=== PATIENT | female | born 1970 | race African-American/Black ===

== ENCOUNTER 2025-03-05 18:41 | Emergency (ER) | payer MEDICAID, OTHER ==
[~2025-03-05] VITALS: Ht 157.5 cm; Wt 86.5 kg
[2025-03-05] MEDS ORDERED: FAMOTIDINE 20MG TABLET PO ONE (21:45)
[2025-03-05] MEDS ORDERED: KETOROLAC 15MG/ML VIAL IM ONE (21:45)
[2025-03-05 23:16] LABS: BASOPHILS % 1.4 % (0.0-2.0); EOSINOPHILS % 2.0 % (0.0-5.0); HEMATOCRIT. 37.0 % (36.0-48.0); HEMOGLOBIN. 11.9 g/dL (12.0-16.0); LYMPHOCYTES % 31.1 % (20.0-50.0); MEAN PLATELET VOLUME 10.7 fl (7.4-10.4); MONOCYTES % 8.7 % (2.0-8.0); NEUTROPHILS % 56.8 % (40.0-76.0); PLATELET 191 x1000/uL (130-400); RED BLOOD CELL COUNT 3.93 mill/uL (4.2-5.4); RED CELL DISTRIBUTION WIDTH 13.8 % (11.6-14.6)
[2025-03-05 23:26] LABS: INR 1.1
[2025-03-05 23:28] LABS: CREATININE 0.6 mg/dL (0.6-1.0); UREA NITROGEN BLOOD 6 mg/dL (9-23)
[2025-03-05 23:30] LABS: ASPARTATE AMINOTRANSFERASE 181 IU/L (<34); BILIRUBIN DIRECT 0.2 mg/dL (<=3.0); BILIRUBIN TOTAL 0.4 mg/dL (0.1-1.0); PROTEIN TOTAL 8.2 g/dL (6.0-8.3)
[2025-03-05 23:31] LABS: HCG SCREEN NEGATIVE
[2025-03-06] MEDS: FAMOTIDINE 20MG TABLET PO NR (00:08)
[2025-03-06] MEDS: KETOROLAC 30MG/ML VIAL IM NR (00:09)
[2025-03-06 01:41] LABS: CLARITY URINE CLOUDY (CLEAR); COLOR URINE DARK YELLOW (YELLOW); GLUCOSE URINE NEGATIVE (NEGATIVE); KETONES URINE TRACE (NEGATIVE); LEUKOCYTE ESTERASE URINE 1+ (NEGATIVE); NITRITE URINE POSITIVE (NEGATIVE); OCCULT BLOOD URINE NEGATIVE (NEGATIVE); PH URINE 6.0 (4.5-8.0); PROTEIN URINE TRACE (NEGATIVE); SPECIFIC GRAVITY URINE 1.023 (1.005-1.030); UROBILINOGEN URINE 1.0 E.U./dL (0.2-1.0)
[2025-03-06 01:53] LABS: BACTERIA URINE 3+; RBC URINE 0-2 /hpf (0-2); SQUAMOUS EPITHELIAL CELL URINE 2+ /lpf (RARE/1+); WBC URINE 15-25 /hpf (0-2)
[2025-03-06] MEDS: CEFTRIAXONE 1GM/50ML 50 ML IV ONE (03:37)
[2025-03-06 06:51] VITALS: BP 139/62; PULSE 91; RESP 15; TEMP 36.7; O2SAT 98
[2025-03-06] MEDS ORDERED: ACET-2708 MT (07:00)
[2025-03-06] MEDS ORDERED: SULF1TAB48 MT (07:00)
[2025-03-06] MEDS ORDERED: IBUP-2030 MT (07:00)
== END 2025-03-06 07:05 | disposition home or self-care (01) ==
LOC: ER 18:41 → EDBEDREQ 22:05 → ER 03-06 07:05 → CMPBEDREQ 03-06 07:43
DX: S92.301A Fracture of unspecified metatarsal bone(s), right foot, initial encounter for closed fracture (principal); N12 Tubulo-interstitial nephritis, not specified as acute or chronic; R10.84 Generalized abdominal pain; Z79.899 Other long term (current) drug therapy; X58.XXXA Exposure to other specified factors, initial encounter; Y93.89 Activity, other specified; Y92.89 Other specified places as the place of occurrence of the external cause; Y99.8 Other external cause status
CPT/HCPCS: 99285; 96374; 76705; 80076; 80048; 84703; 83690; 85025; 85610; 85730; 36415; 73630; 96372; 74176; 81003; 87086; 87186; 87077; J1885; J0696